=== PATIENT | female | born 1950 | race Two or more races ===

== ENCOUNTER 2024-08-03 12:46 | Emergency (ER) | payer OTHER ==
[~2024-08-03] VITALS: Ht 152.4 cm; Wt 66.9 kg
[~2024-08-03 12:46] MED LIST: ASPI81CH43 PO; ENAL1TAB47 PO; GLIP10TA9 PO; METF-371 PO; PRAV20TA3 GT
--- NOTE | 2024-08-03 14:44 | ED.PDOC ---
History of Present Illness HPI Comments 74Y F with PMHx DM, HTN, and HLD presents to ED for chief complaint hypoglycemia. Per family, pt's blood sugar was 28 2 days ago. Pt did not come to ED at that time because she drank Coca-Cola and BS increased. Per family, there was one other episode of hypoglycemia as well. Pt was seen by PCP and referred t o specialist but has not received appt yet. BS upon ED arrival 190. Chief Complaint: Diarrhea Time Seen by MD: 14:11 Primary Care Provider: ? Reviewed Notes: Nurses Notes, Medications, Allergies Allergies: Coded Allergies: NO KNOWN ALLERGIES (Unverified , 08/25/13) Home Meds Reported Medications Aspirin (Asa) 81 Mg Ch, 81 MG PO 08/25/13 Pravastatin Sodium (PRAVACHOL TABLET) 20 Mg Tb, 20 MG GT 08/25/13 Glipizide (Glipizide) 10 Mg Tab, 10 MG PO BID, TAB 08/25/13 Enalapril Maleate (Enalapril Maleate) 10 Mg Tab, 10 MG PO DAILY, TAB 08/25/13 Metformin Hydrochloride (Metformin Hcl) 850 Mg Tab, 850 MG PO BID, TAB 08/25/13 Information Source: Patient, Relative (Child) Mode of Arrival: Ambulatory Severity: Mild Timing: Days Duration: Intermittent Past Medical History PAST MEDICAL HISTORY: DM, High Lipids, HTN Surgical History: Denies all surgeries MELON PACKER History: No Pertinent MELON PACKER History Family History Family History: No family hx of Cancer Social History Smoker: Non-Smoker Alcohol: Denies ETOH Use Drugs: Denies Drug Use Lives In: Home Constitutional: denies: chills, diaphoresis, fatigue, fever, malaise, sweats, weakness, others EENTM: denies: blurred vision, double vision, ear bleeding, ear discharge, ear drainage, ear pain, ear ringing, eye pain, eye redness, hearing loss, mouth pain, mouth swelling, nasal discharge, nose bleeding, nose congestion, nose pain, photophobia, tearing, throat pain, throat swelling, voice changes, others Respiratory: denies: cough, hemoptysis, orthopnea, SOB at rest, shortness of breath, SOB with excertion, stridor, wheezing, others Cardiovascular: denies: chest pain, dizzy spells, diaphoresis, Dyspnea on exertion, edema, irregular heart beat, left arm pain, lightheadedness, palpitations, PND, syncope, others Gastrointestinal: denies: abdomen distended, abdominal pain, blood streaked bowels, constipated, diarrhea, dysphagia, difficulty swallowing, hematemesis, melena, nausea, poor appetite, poor fluid intake, rectal bleeding, rectal pain, vomiting, others Genitourinary: denies: abnormal vagina bleeding, burning, dyspareunia, dysuria, flank pain, frequency, hematuria, incontinence, pain, , vagina discharge, urgency, others Neurological: denies: dizziness, fainting, headache, left sided numbness, left sided weakness, numbness, paresthesia, pre-existing deficit, right sided numbness, right sided weakness, seizure, speech problems, tingling, tremors, weakness, others Musculoskeletal: denies: back pain, gout, joint pain, joint swelling, muscle pain, muscle stiffness, neck pain, others Integumetry: denies: bruises, change in color, change in hair/nails, dryness, laceration, lesions, lumps, rash, wounds, others Allergic/Immunocompromised: denies: Difficulty Healing, Frequent Infections, Hives, Itching, others Hematologic/Lymphatic: denies: anemia, blood clots, easy bleeding, easy bruising, swollen glands, others Endocrine: denies: excessive hunger, excessive sweating, excessive thirst, excessive urination, flushing, intolerance to cold, intolerance to heat, unexplained weight gain, unexplained weight loss, others Psychiatric: denies: anxiety, bipolar disorder, depression, hopeless, panic disorder, schizophrenia, sleepless, suicidal, others All Other Systems: Reviewed and Negative Physical Exam General Appearance: No Apparent Distress, Normal HEENT: Normal ENT Inspection, Pharynx Normal, TMs Normal Neck: Full Range of Motion, Non-Tender, Normal, Normal Inspection Respiratory: Chest Non-Tender, Lungs Clear, No Accessory Muscle Use, No Respiratory Distress, Normal Breath Sounds Cardiovascular: No Edema, No JVD, No Murmur, No Gallop, Normal Peripheral Pulses, Regular Rate/Rhythm Breast Exam: Deferred Gastrointestinal: No Organomegaly, Non Tender, No Pulsatile Mass, Normal Bowel Sounds, Soft Genitalia: Deferred Pelvic: Deferred Rectal: Deferred Extremities: No calf tenderness, Normal capillary refill, Normal inspection, Normal range of motion, Non-tender, No pedal edema Musculoskeletal : Apperance: Normal Neurologic: Alert, evening anchor II-XII nml as Tested, No Motor Deficits, Normal Affect, Normal Mood, No Sensory Deficits Cerebellar Function: Normal Reflexes: Normal Skin: Dry, Normal Color, Warm Lymphatic: No Adenopathy Was a procedure done? Was a procedure done?: No Differential Dx Considerations may include: dka, honks, poorly controlled diabetes, hypertensive urgency, hypertensive emergency, malignant hypertension, essential hypertension, renal failure X-Ray, Labs, Meds, VS Vital Signs Date Time Temp Pulse Resp B/P (MAP) Pulse Ox O2 Delivery O2 Flow Rate FiO2 08/03/24 13:31 87 08/03/24 13:20 97.6 89 18 158/65 (96) 97 Lab Test 08/03/24 14:42 08/03/24 13:24 Range/Units White Blood Count 8.5 4.4-10.8 10^3/uL Red Blood Count 4.37 4.0-5.20 10^6/uL Hemoglobin 13.5 12.2-16.2 g/dL Hematocrit 39.5 36.0-46.0 % Mean Corpuscular Volume 90.2 80.0-100.0 fL Mean Corpuscular Hemoglobin 30.8 28.0-32.0 pg Mean Corpuscular Hemoglobin Concent 34.2 32.0-36.0 g/dL Red Cell Distribution Width 13.5 11.8-14.3 % Platelet Count 363 140-450 10^3/uL Mean Platelet Volume 7.3 6.9-10.8 fL Neutrophils (%) (Auto) 69.4 37.0-80.0 % Lymphocytes (%) (Auto) 22.3 10.0-50.0 % Monocytes (%) (Auto) 7.6 0.0-12.0 % Eosinophils (%) (Auto) 0.3 0.0-7.0 % Basophils (%) (Auto) 0.4 0.0-2.0 % Neutrophils # (Auto) 5.9 1.6-8.6 10 ^3/uL Lymphocytes # (Auto) 1.9 0.4-5.4 10 ^3/uL Monocytes # (Auto) 0.6 0-1.3 10 ^3/uL Eosinophils # (Auto) 0 0-0.8 10 ^3/uL Basophils # (Auto) 0 0-0.2 10 ^3/uL Nucleated Red Blood Cells 0.2 % Sodium Level 130 L 136-145 mmol/L Potassium Level 4.1 3.5-5.1 mmol/L Chloride Level 97 L 98-107 mmol/L Carbon Dioxide Level 26 20-31 mmol/L Anion Gap 7 5-15 Blood Urea Nitrogen 24 H 9-23 mg/dL Creatinine 1.14 H 0.550-1.02 mg/dL Glomerular Filtration Rate Calc 51 >90 mL/min BUN/Creatinine Ratio 21.1 H 10.0-20.0 Serum Glucose 192 H 74-106 mg/dL Calcium Level 9.5 8.7-10.4 mg/dL Urine Color Light-yellow Yellow Urine Clarity Clear Clear Urine pH 5.0 5.0-9.0 Urine Specific [place] 1.012 1.001-1.035 Urine Protein Negative Negative Urine Ketones Negative Negative Urine Blood Trace H Negative /uL Urine Nitrite Negative Negative Urine Bilirubin Negative Negative Urine Urobilinogen Normal Negative mg/dL Urine Leukocyte Esterase 1+ Negative /uL Urine RBC <1 0 - 4 /hpf Urine WBC 4 0 - 5 /hpf Urine Squamous Epithelial Cells Few <5 /hpf Urine Bacteria Few H None Seen /hpf Urine Glucose Normal Normal mg/dL Time of 1ST Reevaluation: 14:41 Reevaluation 1ST: Unchanged Patient Education/Counseling: Diagnosis, Treatment, Prognosis, Need For Follow Up Family Education/Counseling: Diagnosis, Treatment, Prognosis, Need For Follow Up Additional Information I reviewed the following notes from patient's past medical encounters: [facility] ER 02/18/2014, 08/25/2013 The following tests were ordered, and results were reviewed by me: EKG, CBC, BMP Additional Information was gathered from interviewing the following independent historians: Family I reviewed and agreed with the following test results read by other providers: None I discussed treatment and results with medical personnel and family. Departure 1 Departure Time of Disposition: 16:37 Impression: Primary Impression: UTI (urinary tract infection) Qualified Codes: N30.00 - Acute cystitis without hematuria Additional Impressions: Diabetes Qualified Codes: E11.9 - Type 2 diabetes mellitus without complications Hypertension Qualified Codes: I10 - Essential (primary) hypertension Disposition: 01 HOME / SELF CARE / HOMELESS Condition: Good Additional Instructions: follow up with your doctor regarding blood sugr and blood pressure control e-Prescriptions Cephalexin Monohydrate (Cephalexin) 500 Mg Tab 1 TAB PO QID, #40 TAB Prov: HA CURIEL MD 08/03/24 Discharged With: Relative, Spouse Critical Care Note Critical Care Time?: No Stability Stability form required: No Heart Score Heart Score: Heart Score Response (Comments) Value History N/A 0 EKG N/A 0 Age N/A 0 Risk Factors N/A 0 Troponin N/A 0 Total 0 I personally scribed for HA CURIEL MD ([facility]) on 08/03/24 at 14:44. Electron ically submitted by Myranda Duncan ([facility]). I personally scribed for HA CURIEL MD ([facility]) on 08/03/24 at 15:33. Christa ctronically submitted by Myranda Duncan ([facility]). HA CURIEL MD Aug 03, 2024 14:44
[2024-08-03 14:53] LABS: Urine Bacteria FEW /hpf (None Seen); Urine Blood TRACE /uL (Negative); Urine Clarity Clear (Clear); Urine Color Light-Yellow (Yellow); Urine Protein, UAD Negative (Negative); Urine Specific Gravity 1.012 (1.001-1.035); Urine Squamous Epithelial Cell FEW /hpf (<5); Urine Urobilinogen Normal (Negative); Urine WBC 4 /hpf (0 - 5)
[2024-08-03 15:02] LABS: Basophils # (auto) 0 10 ^3/uL (0-0.2); Basophils % (auto) 0.4 % (0.0-2.0); Eosinophils # (auto) 0 10 ^3/uL (0-0.8); Eosinophils % (auto) 0.3 % (0.0-7.0); Hematocrit 39.5 % (36.0-46.0); Hemoglobin 13.5 g/dL (12.2-16.2); Lymphocytes # (auto) 1.9 10 ^3/uL (0.4-5.4); Lymphocytes % (auto) 22.3 % (10.0-50.0); Mean Corpuscular Hemoglobin 30.8 pg (28.0-32.0); Mean Corpuscular Hgb Conc. 34.2 g/dL (32.0-36.0); Mean Corpuscular Volume 90.2 fL (80.0-100.0); Monocytes # (auto) 0.6 10 ^3/uL (0-1.3); Monocytes % (auto) 7.6 % (0.0-12.0); Neutrophils # (auto) 5.9 10 ^3/uL (1.6-8.6); Neutrophils % (auto) 69.4 % (37.0-80.0); Nucleated Red Blood Cells % 0.2 %; Platelet Count (auto) 363 10^3/uL (140-450); Red Blood Cells 4.37 10^6/uL (4.0-5.20); Red Cell Distribution Width 13.5 % (11.8-14.3); White Blood Cell 8.5 10^3/uL (4.4-10.8)
[2024-08-03 15:23] LABS: Potassium 4.1 mmol/L (3.5-5.1)
[2024-08-03 15:24] LABS: Anion Gap 7 (5-15); Calcium 9.5 mg/dL (8.7-10.4); Carbon Dioxide 26 mmol/L (20-31)
[2024-08-03 15:29] LABS: BUN/Creatinine Ratio 21.1 (10.0-20.0)
[2024-08-03 16:02] LABS: Blood Urea Nitrogen 24 mg/dL (9-23); Chloride 97 mmol/L (98-107); Glucose 192 mg/dL (74-106); Sodium 130 mmol/L (136-145)
[2024-08-03] MEDS ORDERED: CEPH500T PO (16:40)
[2024-08-03 17:27] VITALS: BP 159/59; PULSE 75; RESP 16; TEMP 98; O2SAT 98
--- NOTE | 2024-08-04 19:08 | ECG ---
[facility] Test Date: 2024-08-03 Test Time: 13:31:17 Pat Name: JAZIEL PRADO Department: ER Room: Gender: F [employer] Laborer: ROSE MARIE : 1950 Requested By: TAY MCDONNELL Order Number: [id number] Reading MD: Measurements Intervals [place] Rate: 87 P: 50 RI: 46 QRS: 99 QRSD: 120 T: -32 QT: 315 QTc: 379 Interpretive Statements Sinus rhythm Short RI interval Nonspecific intraventricular conduction delay Borderline repolarization abnormality Minimal ST elevation, lateral leads Please click the below link to view image of tracing.
== END 2024-08-03 17:36 | disposition home or self-care (01) ==
LOC: ER 12:46
DX: E11.649 Type 2 diabetes mellitus with hypoglycemia without coma (principal); I10 Essential (primary) hypertension; N39.0 Urinary tract infection, site not specified; Z79.899 Other long term (current) drug therapy; Z79.84 Long term (current) use of oral hypoglycemic drugs
CPT/HCPCS: 36415; 80048; 81001; 82962; 85025; 93005